=== PATIENT | female | born 1985 | race Caucasian/White ===

== ENCOUNTER 2025-02-20 20:59 | Emergency (ER) | payer OTHER, SELFPAY ==
[2025-02-20 21:02] VITALS: BP 138/89
[2025-02-20 21:19] LABS: Hematocrit 21.1 % (37.0-47.0); Hemoglobin 7.0 g/dL (12.0-16.0); Mean Corp Hgb Conc. 33.2 g/dL (33.0-37.0); Mean Corpuscular Volume 86.5 fL (81.0-99.0); Nucleated Red Blood Cells % 0 %; Platelet Count 281 10^3/uL (130-400); Red Cell Dist. Width 14.4 % (11.5-14.5)
[2025-02-20 21:38] LABS: ALT (SGPT) 19 U/L (0-35); AST (SGOT) 23 U/L (14-36); Albumin 4.1 g/dl (3.5-5.0); Alkaline Phosphatase 68 U/L (38-126); Blood Urea Nitrogen 20 mg/dl (7-17); Calcium 9.3 mg/dl (8.4-10.2); Carbon Dioxide 25 mmol/L (22-30); Chloride 109 mmol/L (98-107); Glucose 126 mg/dl (70-99); Potassium 3.8 mmol/L (3.5-5.1); Sodium 136 mmol/L (135-145); Total Protein 6.8 g/dl (6.3-8.2); eGFR > 60.00
--- NOTE | 2025-02-20 22:01 | ED.GENMED ---
History of Present Illness
<Mart Yin Jr., PA-C - Last Filed: 02/22/25 08:13>
General
Chief Complaint: Heart Rate Problem
Source: patient
Exam Limitations: none
Time Seen by Provider: 02/20/25 21:42
Nursing documentation reviewed up to this point in time: agreed with
History of Present Illness
History of Present Illness:
39-year-old female past medical history of hypertension presenting to the emergency department today with concerns of worsening palpitations and pain to the left low back and buttock. Initial fall happened 3 days ago. She noticed increasing heart
rate palpitations today also increased bruising.
Past History
<Mart Yin Jr., PA-C - Last Filed: 02/22/25 08:13>
Past History
ED Past Medical History: Psychiatric (Anxiety, depression, alcohol abuse)
ED Past Surgical History: None
Social History
Tobacco: Smoker
Alcohol: Daily
Drug: None
Personal: Single
Living: with family
Employment: Employed
Review of Systems
<Mart Yin Jr., PA-C - Last Filed: 02/22/25 08:13>
Review of Systems
Allergies reviewed?: Yes
All Other Systems: ROS reviewed and negative except as documented in HPI and ROS
Phy Exam
<LINDA Joseph Jr. Last Filed: 02/22/25 08:13>
Physical Exam
Physical Exam:
GENERAL: Alert , in no apparent distress
EYE: pupils equal and reactive
NECK: Supple, no significant adenopathy.
ENT: o/p clr, mmm.
CARDIAC: Regular rate and rhythm .
LUNGS: Clear breath sounds bilaterally, no acute respiratory distress, no wheezes/rales/rhonchi
ABDOMEN: Soft, without focal tenderness, no r/g, no cvat
NEUROLOGICAL: Alert and oriented, no focal neuro deficits
SKIN: Large ecchymosis hematoma to the left buttock region roughly 20 cm x 20 cm in total size tender to palpation throughout. Previously was lined 2 days ago at [facility] now roughly double size. Warm and dry, skin intact.
MUSCULOSKELETAL: No edema, well perfused.
PSYCH: Normal and appropriate interaction.
Course
<Mart Yin Jr., LINDA - Last Filed: 02/22/25 08:13>
Orders/Labs/Results
Orders:
Orders
02/20/25 21:08
EKG [Electrocardiogram (*1)] Urgent
Reason for Study: Bradycardia / Tachycardia
EKG- Treatment ONCE
02/20/25 21:13
Complete Blood Count/With Diff Urgent
Comprehensive Metabolic Panel Urgent
HCG, Serum Qualitative Screen Urgent
Comment: ADD ON
Magnesium Urgent
02/20/25 21:54
CT Abd/Pel (IV only)-DH only Urgent
Comment:
Reason For Exam: left buttock large ehmatoma, low hgb
02/20/25 21:55
0.9% Sodium Chloride 1000 ml [Nss] 1,000 ml IV BOLUS
02/20/25 22:01
Urinalysis Reflex To Culture Urgent
Date Specimen was Collected: 02/21/25
Time Specimen was Collected: 02:11
02/20/25 22:04
Type+Screen Urgent
Creatine Phosphokinase Urgent
02/20/25 22:06
Add On- LAB Urgent
Tests Added?: Magnesium
02/20/25 22:40
ABO2 Urgent
BBK Wristband Number:
Associate notified that ABO2 has been ordered: [id number]
Date: 02/20/25
Time: 22:35
Deburrer Strip ID: [id number]
02/20/25 23:03
Add On- LAB Urgent
Tests Added?: hcg qual serum.
02/21/25 01:03
* Blood Bank Products Urgent
Blood Bank Products: *Packed RBC Leuko(PRBC's)
Quantity: 1
Transfuse Today: Yes
Reason: Anemia
02/21/25 02:12
Urine Microscopic Reflex Cult Urgent
Urine Culture Urgent
SHIRLEY Source: U
Specimen Description:
Date Specimen was Collected: 02/21/25
Time Specimen was Collected: 02:11
Abnormal Lab Results
02/20/25 02/20/25 02/21/25
21:13 22:04 02:12
RBC 2.44 L 10^6/uL
(4.20-5.40)
Hgb 7.0 L g/dL
(12.0-16.0)
Hct 21.1 L %
(37.0-47.0)
Absolute Monos (auto) 0.7 H 10^3/uL
(0.1-0.6)
Chloride 109 H mmol/L
(98-107)
BUN 20 H mg/dl
(7-17)
Creatinine 0.5 L mg/dL
(0.6-1.0)
Glucose 126 H mg/dl
(70-99)
Urine Ketones 3+ A
(Negative)
Leukocyte Esterase Rfl 1+ A
(Negative)
Urine Bacteria (Reflex) Few A
(Negative)
Urine Albumin (Reflex) 1+ A
(Neg - Trace)
Crossmatch IS Only See Detail
02/20/25 21:13
02/20/25 21:13
CT IMPRESSION:
There is a large hematoma within the left gluteal region subcutaneous and deep soft tissues, measuring 15.2 x 11.1 x 5.4 cm. No evidence of a hematocrit level or contrast blush on the delays. Surrounding pronounced subcutaneous soft tissue edema is
seen, which tracks throughout the left gluteal region and throughout the partially imaged lateral aspect of the left thigh.
Otherwise, no evidence of additional acute traumatic findings seen elsewhere within the abdomen or pelvis.
Status post previous partial distal large bowel resection. Status post sleeve gastrectomy. No evidence of bowel obstruction.
Additional findings: DJD. Focal fat adjacent to the falciform ligament. Trace dependent atelectasis. Soft tissue gas foci in the left ventral abdominal wall are likely from recent injection.
Vital Signs
Initial and Last Documented VS:
Initial Vital Signs
Temp Pulse Resp BP Pulse Ox
98.9 F 138 20 138/89 98
02/20/25 21:02 02/20/25 21:02 02/20/25 21:02 02/20/25 21:02 02/20/25 21:02
Last Documented Vital Signs
Temp Pulse Resp BP Pulse Ox
98.3 F 75 18 115/53 98
02/21/25 04:59 02/21/25 04:59 02/21/25 04:59 02/21/25 04:59 02/21/25 04:45
<Nathaniel Maria DO - Last Filed: 02/20/25 22:20>
Orders/Labs/Results
Orders:
Orders
02/20/25 21:08
EKG [Electrocardiogram (*1)] Urgent
Reason for Study: Bradycardia / Tachycardia
EKG- Treatment ONCE
02/20/25 21:13
Complete Blood Count/With Diff Urgent
Comprehensive Metabolic Panel Urgent
HCG, Serum Qualitative Screen Urgent
Comment: ADD ON
Magnesium Urgent
02/20/25 21:54
CT Abd/Pel (IV only)-DH only Urgent
Comment:
Reason For Exam: left buttock large ehmatoma, low hgb
02/20/25 21:55
0.9% Sodium Chloride 1000 ml [Nss] 1,000 ml IV BOLUS
02/20/25 22:01
Urinalysis Reflex To Culture Urgent
Date Specimen was Collected: 02/21/25
Time Specimen was Collected: 02:11
02/20/25 22:04
Type+Screen Urgent
Creatine Phosphokinase Urgent
02/20/25 22:06
Add On- LAB Urgent
Tests Added?: Magnesium
02/20/25 22:40
ABO2 Urgent
BBK Wristband Number:
Associate notified that ABO2 has been ordered: [id number]
Date: 02/20/25
Time: 22:35
Deburrer Strip ID: [id number]
02/20/25 23:03
Add On- LAB Urgent
Tests Added?: hcg qual serum.
02/21/25 01:03
* Blood Bank Products Urgent
Blood Bank Products: *Packed RBC Leuko(PRBC's)
Quantity: 1
Transfuse Today: Yes
Reason: Anemia
02/21/25 02:12
Urine Microscopic Reflex Cult Urgent
Urine Culture Urgent
SHIRLEY Source: U
Specimen Description:
Date Specimen was Collected: 02/21/25
Time Specimen was Collected: 02:11
Abnormal Lab Results
02/20/25 02/20/25 02/21/25
21:13 22:04 02:12
RBC 2.44 L 10^6/uL
(4.20-5.40)
Hgb 7.0 L g/dL
(12.0-16.0)
Hct 21.1 L %
(37.0-47.0)
Absolute Monos (auto) 0.7 H 10^3/uL
(0.1-0.6)
Chloride 109 H mmol/L
(98-107)
BUN 20 H mg/dl
(7-17)
Creatinine 0.5 L mg/dL
(0.6-1.0)
Glucose 126 H mg/dl
(70-99)
Urine Ketones 3+ A
(Negative)
Leukocyte Esterase Rfl 1+ A
(Negative)
Urine Bacteria (Reflex) Few A
(Negative)
Urine Albumin (Reflex) 1+ A
(Neg - Trace)
Crossmatch IS Only See Detail
02/20/25 21:13
02/20/25 21:13
Vital Signs
Initial and Last Documented VS:
Initial Vital Signs
Temp Pulse Resp BP Pulse Ox
98.9 F 138 20 138/89 98
02/20/25 21:02 02/20/25 21:02 02/20/25 21:02 02/20/25 21:02 02/20/25 21:02
Last Documented Vital Signs
Temp Pulse Resp BP Pulse Ox
98.3 F 75 18 115/53 98
02/21/25 04:59 02/21/25 04:59 02/21/25 04:59 02/21/25 04:59 02/21/25 04:45
<Mart Yin Jr., PA-C - Last Filed: 02/22/25 08:13>
MDM/Problems Addressed
MDM/Problems Addressed:
39-year-old female presenting to the emergency department today with concerns of ongoing pain worsening ecchymosis to the left buttock after slipping down a step 3 days ago. At the time she had a normal x-ray her labs showed slightly low magnesium
level as well as hemoglobin. Hemoglobin here was repeated now 7.0 was previously 8.5. Considering this given a unit of blood. It was discussed with the patient about getting admitted to the hospital. She felt that symptoms were improving at this
point. Symptoms had improved after a liter of fluid. She was ordered a unit of blood. This is being given to the patient with plans for reassessment afterward. If symptoms are improved and there is no evidence of ongoing bleeding on CT scan she
may elect to follow-up closely as an outpatient.
<Mart Yin Jr., PA-C - Last Filed: 02/22/25 08:13>
*Pulse Oximetry
SaO2: 98
Oxygen Mode of Delivery: Room air
Patient hypoxic: no (98)
*Critical Care Note
Total Time (30-74mins, 75-104mins- exclusive of procedures): Not Applicable
ED Attending Note
<Mart Yin Jr., PA-C - Last Filed: 02/22/25 08:13>
-
Portions of this chart may have been created with voice recognition software.� Occasional wrong word or��sound alike� substitutions may have occurred due to the inherent limitations of voice recognition software.
<Nathaniel Maria DO - Last Filed: 02/20/25 22:20>
ED Attending Note
Patient seen and examined by attending physician: Yes
I performed the substantive portion of visit, reviewed & personally made and approve the management plan that is documented in note by myself or MIKE.: Yes
Discharge Plan
Departure
Patient Disposition: Home (Routine Discharge)
Patient with high blood pressure during this ER visit?: No
Condition: Good
Covid-19: Not Applicable
Discharge Problem:
Anemia, Hematoma
Instructions: Anemia in adults, possibly from low iron - ED discharge instructions
Prescriptions:
No Action
lisinopril 20 MG tablet
20 mg PO DAILY
clonazepam 1 MG tablet
1 mg PO TID
trazodone 150 MG tablet
150 mg PO HS PRN (Reason: for sleep)
fluoxetine 20 MG capsule
60 mg PO DAILY
bupropion HCl [Wellbutrin XL] 300 MG tablet extended release 24 hr
300 mg PO DAILY
cefadroxil [Duricef] 500 MG capsule
500 mg PO BID Qty: 14 0RF
Referrals:
MORGAN,ENOC [Other]
Activity Restrictions/Additional Instructions:
You came to the emergency department today with concerns of worsening hematoma. Here you are found to be anemic you were given a unit of blood. Please follow-up very closely with your primary care doctor for reassessment and repeated labs within
the next week. Return for any worsening, new or concerning symptoms.
Interventions
Interventions:
*Risk Screen - Suicide Last Done: 02/20/25 21:02
*General Assessment Last Done: 02/20/25 21:02
*Neglect/Abuse Screening Last Done: 02/20/25 21:02
*ED- Fall Risk Assessment Last Done: 02/20/25 21:02
*ED COVID-19 Vaccine History Last Done: 02/20/25 21:02
*Nursing Disposition Last Done: 02/21/25 05:32
ED- Cardiac Assessment Last Done: 02/20/25 22:23
ED- Pulmonary Assessment Last Done: 02/20/25 22:23
Discharge Date and Time
Discharge Date/Time: 02/21/25 05:33
Print Language: CROATIAN
[2025-02-20] MEDS: NSS 1000 IV (22:06)
[2025-02-20 22:07] VITALS: BMI 28.4
[2025-02-20 22:25] VITALS: BP 117/65
[2025-02-20 22:38] LABS: Magnesium 1.6 mg/dl (1.6-2.3)
[2025-02-20 23:00] VITALS: BP 116/54
[2025-02-20 23:34] LABS: HCG, Serum Qualitative Screen Negative
[2025-02-21] VITALS (9 sets, daily range): BP systolic 103–126; BP diastolic 53–75
[2025-02-21 02:22] LABS: Urine Character Slightly Cloudy (Clear)
[2025-02-21 02:29] LABS: Urine Squamous Cell >30 /LPF (Few)
[2025-02-21 02:30] LABS: Urine Red Blood Cell 0-2 /HPF (0-2)
== END 2025-02-21 05:33 | disposition home or self-care (01) ==
LOC: EMR 20:59
PROVIDERS: Emergency Medicine; Physician Assistant; EMERGENCY PHYSICIAN Emergency Medicine
DX: S30.0XXA Contusion of lower back and pelvis, initial encounter (principal); D64.9 Anemia, unspecified; W10.9XXA Fall (on) (from) unspecified stairs and steps, initial encounter; F17.200 Nicotine dependence, unspecified, uncomplicated; I10 Essential (primary) hypertension
CPT/HCPCS: 99285; 36430; 74177; 80053; 81003; 81015; 82550; 83735; 84703; 85025; 86850; 86900; 86901; 86920; 87086; 93005; P9016; Q9967

== ENCOUNTER 2025-02-22 14:56 | Observation (INO) | payer OTHER, SELFPAY ==
[2025-02-22] VITALS (14 sets, daily range): BP systolic 113–162; BP diastolic 69–97; BMI 29.3; BMI 28.9
--- NOTE | 2025-02-22 09:47 | ED.GENMED ---
History of Present Illness
General
Chief Complaint: Anxiety
Source: patient and ambulance crew
Exam Limitations: none
Time Seen by Provider: 02/22/25 09:33
Nursing documentation reviewed up to this point in time: agreed with
History of Present Illness
History of Present Illness:
39-year-old female past medical history of significant abdominal surgeries hypertension presenting to the emergency department today with concerns of palpitations heart racing and anxiety that occurred earlier today. Of note she was recently in the
ER 2 days ago after she had a large hematoma to her buttock there was a CT scan that did not show any active bleeding she was given a unit of blood had significant improvement of symptoms and was discharged for close outpatient follow-up. She
denies any chest pain at this point but did have palpitations able to lay on the ground and felt better. Was brought in by EMS. Does have some ongoing symptoms of anxiety and palpitations but denies any chest pain shortness of breath fevers.
Past History
Past History
ED Past Medical History: Psychiatric (Anxiety, depression, alcohol abuse)
ED Past Surgical History: None
Social History
Tobacco: Smoker
Alcohol: Daily
Drug: None
Personal: Single
Living: with family
Employment: Employed
Review of Systems
Review of Systems
Allergies reviewed?: Yes
All Other Systems: ROS reviewed and negative except as documented in HPI and ROS
Phy Exam
Physical Exam
Physical Exam:
GENERAL: Alert , in no apparent distress
EYE: pupils equal and reactive
NECK: Supple, no significant adenopathy.
ENT: o/p clr, mmm.
CARDIAC: Regular rate and rhythm .
LUNGS: Clear breath sounds bilaterally, no acute respiratory distress, no wheezes/rales/rhonchi
ABDOMEN: Soft, without focal tenderness, no r/g, no cvat
NEUROLOGICAL: Alert and oriented, no focal neuro deficits
SKIN: Large area of ecchymosis to the left buttock roughly similar from 2 days ago for my previous assessment warm and dry, skin intact.
MUSCULOSKELETAL: No edema, well perfused.
PSYCH: Normal and appropriate interaction.
Course
Orders/Labs/Results
Orders:
Orders
02/22/25 09:33
EKG [Electrocardiogram (*1)] Urgent
Reason for Study: Fatigue / Weakness
02/22/25 09:34
EKG- Treatment ONCE
Test Result ONCE
02/22/25 09:42
0.9% Sodium Chloride 1000 ml [Nss] 1,000 ml IV BOLUS
02/22/25 10:07
CMP [Comprehensive Metabolic Panel] Urgent
HCG, Serum Qualitative Screen Urgent
Troponin I Urgent
02/22/25 10:08
CBC/With Diff [Complete Blood Count/With Diff] Urgent
Lactic Acid Urgent
02/22/25 10:28
CT Chest PE Study Urgent
Comment:
Reason For Exam: lightheaded, recent trauma
02/22/25 11:24
Lorazepam [Ativan] 0.5 mg IV NOW STA
02/22/25 11:32
Urinalysis Reflex To Culture Urgent
Date Specimen was Collected: 02/22/25
Time Specimen was Collected: 11:28
Urine Microscopic Reflex Cult Urgent
Urine Culture Urgent
SHIRLEY Source: U
Specimen Description:
Obtained by: Random
Date Specimen was Collected: 02/22/25
Time Specimen was Collected: 11:28
02/22/25 13:57
Lorazepam [Ativan] 0.5 mg IV NOW STA
Abnormal Lab Results
02/22/25 02/22/25 02/22/25
10:07 10:08 11:32
RBC 3.17 L 10^6/uL
(4.20-5.40)
Hgb 8.6 L D g/dL
(12.0-16.0)
Hct 26.9 L %
(37.0-47.0)
MCHC 32.0 L g/dL
(33.0-37.0)
RDW 16.0 H %
(11.5-14.5)
Lymphocytes % 18.9 L %
(20.5-51.1)
Chloride 114 H mmol/L
(98-107)
Creatinine 0.5 L mg/dL
(0.6-1.0)
Urine Ketones 2+ A
(Negative)
Leukocyte Esterase Rfl 1+ A
(Negative)
Urine Bacteria (Reflex) Few A
(Negative)
Urine Albumin (Reflex) 1+ A
(Neg - Trace)
02/22/25 10:08
02/22/25 10:07
Vital Signs
Initial and Last Documented VS:
Initial Vital Signs
Pulse Resp BP Pulse Ox
143 20 162/85 100
02/22/25 09:34 02/22/25 09:34 02/22/25 09:34 02/22/25 09:34
Last Documented Vital Signs
Temp Pulse Resp BP Pulse Ox
98.4 F 113 20 139/87 97
02/22/25 10:02 02/22/25 13:15 02/22/25 13:15 02/22/25 13:00 02/22/25 13:15
MDM/Problems Addressed
MDM/Problems Addressed:
39-year-old female presenting to the emergency department today with concern of palpitations lightheadedness prior to arrival. Brought in by EMS. Tachycardic on arrival to the 130s. Here hemoglobin significantly improved from previous visit 8.6
compared to 7.0. Other labs unremarkable troponin negative urinalysis normal chest CT did not show any emergent findings did show incidental. Tachycardia still persisting despite receiving medication for anxiety plan to admit for further
monitoring and treatment.
*Pulse Oximetry
SaO2: 100
Oxygen Mode of Delivery: Room air
Patient hypoxic: no (97)
*Critical Care Note
Total Time (30-74mins, 75-104mins- exclusive of procedures): Not Applicable
ED Attending Note
-
Portions of this chart may have been created with voice recognition software.� Occasional wrong word or��sound alike� substitutions may have occurred due to the inherent limitations of voice recognition software.
Discharge Plan
Departure
Patient Disposition: Admit
Date of Disposition: 02/22/25
Time of Disposition: 14:02
Admit to: Telemetry
Admit to doctor: Htay
Presentation/result/management discussed w/ accepting MD/DO: Hospitalist
Patient with high blood pressure during this ER visit?: No
Condition: Fair
Covid-19: Not Applicable
Discharge Problem:
Tachycardia
Prescriptions:
No Action
lisinopril 20 MG tablet
20 mg PO DAILY
clonazepam 1 MG tablet
1 mg PO TID
trazodone 150 MG tablet
150 mg PO HS PRN (Reason: for sleep)
fluoxetine 20 MG capsule
60 mg PO DAILY
bupropion HCl [Wellbutrin XL] 300 MG tablet extended release 24 hr
300 mg PO DAILY
cefadroxil [Duricef] 500 MG capsule
500 mg PO BID Qty: 14 0RF
Referrals:
UNKNOWN - PT DOES,NOT KNOW [Family Provider]
Interventions
Interventions:
*Risk Screen - Suicide Last Done: 02/22/25 09:34
*General Assessment Last Done: 02/22/25 09:34
*Neglect/Abuse Screening Last Done: 02/22/25 10:02
*ED- Fall Risk Assessment Last Done: 02/22/25 09:34
*ED COVID-19 Vaccine History Last Done: 02/22/25 09:34
ED-Psychological Assessment Last Done: 02/22/25 10:02
Discharge Date and Time
Print Language: PERSIAN
[2025-02-22] MEDS: NSS 1000 IV ×2 (10:06→17:35)
[2025-02-22 10:25] LABS: Hematocrit 26.9 % (37.0-47.0); Hemoglobin 8.6 g/dL (12.0-16.0); Mean Corp Hgb Conc. 32.0 g/dL (33.0-37.0); Mean Corpuscular Volume 84.9 fL (81.0-99.0); Nucleated Red Blood Cells % 0 %; Platelet Count 304 10^3/uL (130-400); Red Cell Dist. Width 16.0 % (11.5-14.5)
[2025-02-22 10:32] LABS: HCG, Serum Qualitative Screen Negative
[2025-02-22 10:37] LABS: ALT (SGPT) 20 U/L (0-35); AST (SGOT) 23 U/L (14-36); Albumin 4.1 g/dl (3.5-5.0); Alkaline Phosphatase 60 U/L (38-126); Blood Urea Nitrogen 8 mg/dl (7-17); Calcium 9.4 mg/dl (8.4-10.2); Carbon Dioxide 24 mmol/L (22-30); Chloride 114 mmol/L (98-107); Estimated Creatinine Clearance > 125 ml/min; Glucose 98 mg/dl (70-99); Potassium 3.6 mmol/L (3.5-5.1); Sodium 139 mmol/L (135-145); Total Protein 7.0 g/dl (6.3-8.2); eGFR > 60.00
[2025-02-22 10:48] LABS: Troponin I < 0.012 ng/ml
[2025-02-22] MEDS: ATIVAN 0.5 MG IV ×2 (11:41→14:11)
[2025-02-22 11:45] LABS: Urine Character Clear (Clear)
[2025-02-22 12:08] LABS: Urine Squamous Cell >30 /LPF (Few)
[2025-02-22 12:09] LABS: Urine Red Blood Cell 0-2 /HPF (0-2)
[2025-02-22] MEDS: LOPRESSOR 50 MG PO ×2 (14:12→20:49)
--- NOTE | 2025-02-22 14:39 | HPS.HSE ---
Family Physician
-
Family Physician: NOT KNOW UNKNOWN - PT DOES
Chief Complaint
-
Palpitation, dizziness
History of Present Illness
Patient is a 39-year-old female with past medical history of depression/anxiety came to ER with new onset of palpitation. Apparently patient had a fall while walking down the stairs, per patient missed a step/slipped and landed on the left buttock.
Patient came into ER for evaluation and on CT abdomen pelvis was found to be having left gluteal area hematoma, no active bleeding was noted. Patient was noted to be anemic and was provided 1 unit of blood transfusion and discharged home. From
yesterday patient when noticing some palpitation and today was bothersome and associated with some shortness of breath, came to ER for further evaluation. Patient also feeling anxious in general and has been seen by outpatient psychiatry at '[facility]'
and patient Prozac has been increased to 60 mg daily.
Patient denies having any other issues of abdominal pain or issues.
Medical History
Past Medical History
Past Medical History: Reports Other
Additional Past Medical History:
Depression/anxiety
Past Surgical History: Reports None
Social History
Tobacco: Vaping
Alcohol: Former
Drug: Marijuana
Employment: Employed
Family History
Family History: Not pertinent
Allergies / Home Medications
Allergies reflects when Allergies were last updated in [employer].
Home Medications with original date entered in [employer]
Allergy/Medication List:
Allergies
Allergy/AdvReac Type Severity Reaction Status Date / Time
No Known Allergies Allergy Verified 02/22/25 09:47
Home Medications
bupropion HCl 300 mg 24 hr tablet, extended release 300 mg PO DAILY 02/22/25
calcium 250 mg (citrate)-ergocalciferol (D2) 2.5 mcg (100 unit) tablet 1 tab PO DAILYPRN PRN supplement 02/22/25
diazepam 2 mg tablet (Valium) 2 mg PO .SEE BELOW PRN anxiety/panic attack 02/22/25
fluoxetine 20 mg capsule 60 mg PO DAILY 02/22/25
metoprolol tartrate 37.5 mg tablet 37.5 mg PO BID 02/22/25
nortriptyline 25 mg capsule 25 mg PO DAILY 02/22/25
therapeutic multivitamin 1 tab PO DAILY 02/22/25
Review of Systems
-
A 12 point ROS was completed and negative except as noted: Yes
Physical Exam
Vital Signs
Vital Signs
Temp Pulse Resp BP Pulse Ox
98.4 F 117 20 141/86 98
02/22/25 10:02 02/22/25 14:12 02/22/25 13:45 02/22/25 14:12 02/22/25 13:45
Physical Exam
General: No Apparent Distress
HEENT: Atraumatic; No Oxygen
Respiratory: Clear
Cardiac: S1/S2, Regular Rhythm and Tachycardia; No Murmur or Rub
GI: Soft, Non Tender, Non Distended and Normal Bowel Sounds; No Organomegaly
Rectal: Deferred by Provider
Musculoskeletal: No Edema
Skin: No Rash
Neuro: Awake, Alert and Nonfocal/grossly intact
Psych: Anxious
Laboratory Results
-
02/22/25 10:08
02/22/25 10:07
Laboratory Results
Lactic Acid 1.2 mmol/L (0.7-2.0) 02/22/25 10:08
Total Bilirubin 0.8 mg/dl (0.2-1.3) 02/22/25 10:07
AST 23 U/L (14-36) 02/22/25 10:07
ALT 20 U/L (0-35) 02/22/25 10:07
Alkaline Phosphatase 60 U/L (38-126) 02/22/25 10:07
Troponin I < 0.012 ng/ml 02/22/25 10:07
Impression/Plan
-
1. Sinus tachycardia
- Patient having symptomatic tachycardia with palpitation dizziness and some shortness of breath
- Likely from recent fall and gluteal hematoma
- CT chest PE negative for any VTE
- Patient already on metoprolol 37.5 mg twice daily, increased to 50 mg twice daily
- EKG reviewed and shows sinus tachycardia. Continue monitoring on telemetry
- Will consider cardiology evaluation/echocardiogram if not improved
2. Mechanical fall causing left gluteal hematoma
Acute blood loss anemia
- Patient required 1 unit of blood transfusion for left gluteal hematoma noted on CT abdomen pelvis on 02/20
- No concern of further bleeding, continue monitoring hemoglobin count
3. Anxiety/depression
- Continue home regimen of Prozac/nortriptyline/bupropion
- Adding as needed Xanax for symptomatic control
DVT prophylaxis -SCD
Full code
Total time spent : 77 mins
I personally saw and examined the patient.
I have reviewed all diagnostic interpretations and treatment plans as written.
Time includes patient management by me, time spent at the patients bedside, time to review lab and imaging results, discussing patient care, documentation in the medical record, and time spent with the family or caregiver and discussing care plan
with RN/Consultants.
[2025-02-22] MEDS: TYLENOL 650 MG PO ×2 (17:35→20:49)
[2025-02-23] MEDS: TYLENOL PO ×3 (00:59→09:43)
--- NOTE | 2025-02-23 02:23 | DOWNTIME ---
There was a [employer] Downtime on 02/23/2025 from 0100 to 02/23/2025 at 0220. Downtime documentation of patient's care, including medication administrations, has been reconciled in the electronic record per guidelines. Refer to the
patient's paper chart under the miscellaneous tab to see printed paper medication records and downtime forms.
[2025-02-23] MEDS: NSS 1000 IV (02:27)
[2025-02-23 03:44] VITALS: BP 125/80
[2025-02-23 06:47] LABS: Hematocrit 23.4 % (37.0-47.0); Hemoglobin 7.5 g/dL (12.0-16.0); Mean Corp Hgb Conc. 32.1 g/dL (33.0-37.0); Mean Corpuscular Volume 87.6 fL (81.0-99.0); Platelet Count 259 10^3/uL (130-400); Red Cell Dist. Width 16.6 % (11.5-14.5)
[2025-02-23 07:16] LABS: Blood Urea Nitrogen 7 mg/dl (7-17); Calcium 8.8 mg/dl (8.4-10.2); Carbon Dioxide 25 mmol/L (22-30); Chloride 113 mmol/L (98-107); Estimated Creatinine Clearance 125 ml/min; Glucose 86 mg/dl (70-99); Potassium 3.9 mmol/L (3.5-5.1); Sodium 138 mmol/L (135-145); eGFR > 60.00
[2025-02-23 07:58] VITALS: BP 123/77
--- NOTE | 2025-02-23 09:05 | W.PN.HOSP.TC ---
Today's Communication/Plan
-
d/c home
Assessment / Plan
Assessment / Plan
1. Sinus tachycardia - Improved
- Patient having symptomatic tachycardia with palpitation dizziness and some shortness of breath
- Likely from recent fall and gluteal hematoma with added uncontrolled anxiety
- CT chest PE negative for any VTE
- Patient already on metoprolol 37.5 mg twice daily, increased to 50 mg twice daily -heart rate better controlled in range of 70-90 overnight, will discharge on 50 mg twice daily for 7 days with lowering to regular dose after that.
- EKG reviewed and shows sinus tachycardia. No telemetry event overnight
- Discussed with patient that we will require to follow-up with cardiology in office as patient reports on and off palpitation in past.
2. Mechanical fall causing left gluteal hematoma
Acute blood loss anemia
- Patient required 1 unit of blood transfusion for left gluteal hematoma noted on CT abdomen pelvis on 02/20
- Patient have some dilutional anemia with hemoglobin dropping from 8.5-7.5 after getting 3 L of NS
- Patient to remain on iron pills for next few weeks
- Follow-up CBC prescription provided
3. Anxiety/depression
- Continue home regimen of Prozac/nortriptyline/bupropion
- Adding as needed Xanax for symptomatic control
- Anxiety symptoms are uncontrolled and patient have reported to taken Valium from friends supply. Providing short prescription of Xanax.
4. Marijuana use
- Reported periodic vaping of marijuana
- Urine drug screen positive for barbiturates/opiate/benzo
DVT prophylaxis -SCD
Full code
More than 30 minutes spent in discharge including
Final examination of the patient
Summarizing hospital stay
Instructions for continuing care to all relevant caregivers
Preparation of discharge records, prescriptions, and referral forms
Total time spent (in minutes): 39 mins
Anticipated Discharge: Today
Subjective/Interval History
-
Date of Service: February 23, 2025
Patient resting comfortably in bed
Continues when somewhat anxious
Tachycardia is improved overnight
Objective Data
-
Labs:
Laboratory Results
02/23/25 02/23/25
06:38 08:58
WBC 6.8
Hgb 7.5 L
Hct 23.4 L
Plt Count 259
PT Pending
INR Pending
APTT Pending
Sodium 138
Potassium 3.9
Chloride 113 H
Carbon Dioxide 25
BUN 7
Creatinine 0.5 L
Glucose 86
Calcium 8.8
Vital Signs:
Vital Signs
Temp Pulse Resp BP Pulse Ox
97.8 F 93 20 123/77 100
02/23/25 07:58 02/23/25 07:58 02/23/25 07:58 02/23/25 07:58 02/23/25 07:58
I&O
02/22/25 02/23/25 02/24/25
06:59 06:59 06:59
Intake Total 2199 / 2199
Balance 2199 / 2199
Review of Systems
-
Respiratory: Reports No Symptoms
Cardiac: Reports No Symptoms
Abdomen/GI: Reports No Symptoms
Physical Exam
-
General: Negative Appears in Distress
HEENT: Negative Oxygen
Neuro: Awake, Alert and No Motor Deficits
[2025-02-23 09:31] LABS: INR 1.08; PT 14.3 Sec (11.4-14.6)
[2025-02-23 09:32] LABS: APTT 29.8 Sec (23.4-35.0)
[2025-02-23] MEDS: LOPRESSOR 50 MG PO (09:42)
[2025-02-23] MEDS: PAMELOR 25 MG PO (09:42)
[2025-02-23] MEDS: PROZAC 60 MG PO (09:42)
[2025-02-23] MEDS: WELLBUTRIN XL (24 hour extended release) 300 MG PO (09:43)
--- NOTE | 2025-02-23 10:32 | CM ---
CM reviewed chart, patient seen bedside, initial assessment completed. Patient resides in a basement of a private home. Patient denies use of DME, reports VN in past, unsure agency, was set up through [facility]. Patient denies SNF.
Patient reports PCP Reshma Cunningham, Pharmacy [facility] in [place] on [address], updated in chart, TT to Hospitalist to resend medications to updated pharmacy. Patient confirms prescription coverage, denies insecurities at home. OBS form verbally
reviewed, provided with copy, placed in chart. Patient reports she will need a ride home, is currently dog sitting her parents, does not have her phone to order a ride, does not have phone to reach out to any friends/contacts. Has tried calling her
brother in [place] to get contact information- cannot reach anyone. CM will order Lyft- confirmed address [address] [id number]
Plan; home no needs
[2025-02-23] MEDS: NSS IV (11:24)
[2025-02-23 11:38] VITALS: BP 115/75
--- NOTE | 2025-02-25 15:11 | W.DCSUMMARY ---
Discharge Summary
Discharge Data
Date of Admission: 02/22/25
Date of Discharge: 02/23/25
-
Pending Results: No
Hospital Course
Discharging Physician : Dr Timbo Pandya
Disposition : To home
Primary care physician : Unknown
Principal Discharge diagnosis :
Symptomatic sinus tachycardia
Recent mechanical fall and left gluteal hematoma
Acute blood loss anemia
Chronic Discharge diagnosis :
Depression/anxiety
Hospital Course :
Patient is a 39-year-old female with no mentioned past medical history came to ER with new onset of palpitation. Patient had a mechanical fall 2 days back before presenting to ER at this time when patient was walking upstairs and fell on the left
buttock causing to have gluteal hematoma. This was diagnosed based on CT scan in ER visit 48 hours preceding this visit. On day day of admission patient started having some palpitation and shortness of breath and came to ER again for evaluation.
A CT chest PE done in ER was negative for any VTE. Patient home dose of metoprolol was increased to 50 mg twice daily. Patient had some blood loss anemia and was provided IV hydration. Did not require any blood transfusion. Patient was monitored
overnight in the hospital with resolution of tachycardia. Patient was discharged home with plan of follow-up with primary homemaking rehabilitation consultant in office.
Important imaging findings :
None
Procedure findings :
None
Discharge Plan
-
Patient Disposition: Home (Routine Discharge)
Discharge Diagnosis/Procedures: Symptomatic sinus tachycardia, Gluteal hematoma
Condition: Fair
Diet: Regular
Activity: As tolerated
Driving Restrictions: As prior to admission
Bathing Restrictions: OK to Shower
Blood Work: CBC in 1 week
Activity Restrictions/Additional Instructions:
Please follow up with Primary care physician office in 1 week
Please follow up with Primary homemaking rehabilitation consultant in 3-4 weeks for evaluation of palpitation
Referrals:
UNKNOWN - PT DOES,NOT KNOW [Family Provider]
Prescriptions:
New
metoprolol tartrate 25 mg tablet
50 mg PO BID Qty: 14 0RF
Rx Instructions:
Take 2 Tab Twice daily for 7 Days THEN
Switch to 1.5 Tab Twice daily for maintenence
ferrous sulfate 325 mg (65 mg iron) tablet
325 mg PO DAILY Qty: 30 0RF
alprazolam [Xanax] 0.25 mg tablet
0.25 mg PO BID PRN (Reason: anxiety) Qty: 10 0RF
Continued
therapeutic multivitamin Tablet
1 tab PO DAILY
nortriptyline 25 mg Capsule
25 mg PO DAILY
fluoxetine 20 mg capsule
60 mg PO DAILY
bupropion HCl 300 mg tablet extended release 24 hr
300 mg PO DAILY
calcium citrate-vitamin D2 250 mg-2.5 mcg (100 unit) Tablet
1 tab PO DAILYPRN PRN (Reason: supplement)
Discontinued
diazepam [Valium] 2 mg Tablet
2 mg PO .SEE BELOW PRN (Reason: anxiety/panic attack)
Patient Comments:
02/22/2025, per pt., she took 2 mg of her friend's old prescription of Valium for a panic attack that she was having 2 days ago. Pt. does not have a Valium prescription of her own, she just used her friend's once.
metoprolol tartrate 37.5 mg tablet
37.5 mg PO BID
Discharge Orders:
Discharge Patient (As Directed); Ordered 02/23/25
Ordered By: Timbo Pandya
Discharge Date and Time
Discharge Date/Time: 02/23/25 12:28
Print Language: JAPANESE
== END 2025-02-23 12:28 | disposition home or self-care (01) ==
LOC: 4 WEST ACU 14:56
PROVIDERS: Physician Assistant; ADMITTING PHYSICIAN Hospitalist; EMERGENCY PHYSICIAN Emergency Medicine
DX: R00.0 Tachycardia, unspecified (principal); D62 Acute posthemorrhagic anemia; S30.0XXD Contusion of lower back and pelvis, subsequent encounter; W10.8XXD Fall (on) (from) other stairs and steps, subsequent encounter; F17.290 Nicotine dependence, other tobacco product, uncomplicated; F41.9 Anxiety disorder, unspecified; F32.A Depression, unspecified; F12.90 Cannabis use, unspecified, uncomplicated; Z79.899 Other long term (current) drug therapy
CPT/HCPCS: 71275; 80048; 80053; 80306; 80307; 81003; 81015; 83605; 84484; 84703; 85025; 85027; 85610; 85730; 87086; 93005; 96361; 96374; 96375; 99285; G0378; Q9967